=== PATIENT | female | born 1930 | race African-American/Black ===

== ENCOUNTER 2019-08-10 23:38 | Emergency (ER) | payer MEDICARE ==
[~2019-08-10] VITALS: Ht 167.6 cm; Wt 59.0 kg
[2019-08-11 00:55] LABS: BASOPHILS % 0.6 % (0.0-2.0); EOSINOPHILS % 1.9 % (0.0-5.0); HEMATOCRIT. 33.9 % (36.0-48.0); HEMOGLOBIN. 11.4 g/dL (12.0-16.0); LYMPHOCYTES % 17.4 % (20.0-50.0); MEAN CORPUSCULAR HEMOGLOBIN 30.4 pg (28.0-32.0); MEAN CORPUSCULAR VOLUME 90.3 fL (81.0-99.0); MONOCYTES % 10.8 % (2.0-8.0); NEUTROPHILS % 69.3 % (40.0-76.0); RED BLOOD CELL COUNT 3.76 mill/uL (4.2-5.4)
[2019-08-11 01:02] LABS: CHLORIDE 104 mEq/L (98-107)
[2019-08-11 02:45] VITALS: BP 144/78
== END 2019-08-11 03:06 | disposition home or self-care (01) ==
LOC: ER 23:38
DX: R51 Headache (principal); F03.90 Unspecified dementia, unspecified severity, without behavioral disturbance, psychotic disturbance, mood disturbance, and anxiety
CPT/HCPCS: 36415; 71045; 93005; 99284